=== PATIENT | female | born 1955 | race Hispanic/Latino ===

== ENCOUNTER 2017-03-22 19:38 | Emergency (ER) | payer OTHER ==
[~2017-03-22] VITALS: Ht 144.8 cm; Wt 68.2 kg
[~2017-03-22 19:38] MED LIST: ALEN70TA2 PO; ANAS1TAB7 PO; ATOR20TA PO; CITA20TA11 PO; HYDR12.5 PO; TERB250T4 PO; VITD PO; ZOLP10TA5 PO; calcium PO
[2017-03-22 19:42] VITALS: BP 152/90; PULSE 60; RESP 16; O2SAT 99
[2017-03-22 20:10] LABS: BASOPHILS % (AUTO) 0.1 % (0-3); EOSINOPHILS % (AUTO) 3.6 % (0-5); Mean Corpuscular Hemoglobin 27.2 pg (27.0-35.0); Mean Corpuscular Volume 82.4 fL (81-100); NEUTROPHILS % (AUTO) 54.4 % (40-74); Platelet Count 303 bil/L (150-400)
[2017-03-22 20:20] VITALS: BP 140/55; PULSE 59; RESP 16; O2SAT 98
--- NOTE | 2017-03-22 20:21 | DRSVH ---
PROCEDURE: X-RAY CHEST ONE VIEW, PORTABLE ([id number]) INDICATIONS: CHEST PAIN TECHNIQUE: One view of the chest was acquired. COMPARISON: None. FINDINGS: Surgical changes and devices: Surgical clips noted in the upper abdomen, in the right breast and the right axilla. Lungs and pleura: No pleural effusions or pneumothorax. Lungs are clear. Mediastinum: Mediastinal contours appear normal. Heart size is normal. Bones and chest wall: No suspicious bony lesions. Overlying soft tissues appear unremarkable. IMPRESSION: No acute cardiopulmonary disease process. Dictated by: Nguyen Ross MD, PhD on 03/22/2017 at 20:18 Approved by: Nguyen Ross MD, PhD on 03/22/2017 at 20:20
--- NOTE | 2017-03-22 20:27 | ED.REPORT ---
HPI-General Illness Date of Service Mar 22, 2017 ED Provider: Jaswinder Fritz Patient is a 61 year old female with a hx of HTN, hyperlipidemia, and breast cancer who presents to the ED after being referred by urgent care complaining of midline chest pressure onset this morning. Her pressure did not radiate and was a 4/10 at its worst. She is currently chest pain free and her symptoms gradually improved throughout the day. Her symptoms improved with walking about and inspiration. Her EKG and labs at were negative but they told her to come to the ED for further evaluation. Associated symptoms include L hand numbness ( onset this morning while working, resolved) and nausea, mild SOB, and mild neck pain onset a few hours ago - these have all resolved. She denies headache, fever , chills, lightheadedness, or any other symptoms. She has no known family hx of cardiac disease. Nursing Notes Stated Complaint: PRESSURE ON CHEST Chief Complaint: Chest Pain Nursing Notes Reviewed: Yes Allergies: Coded Allergies: Contrast Media (Verified Allergy, Severe, SOB, 04/01/13) iodamide (Verified Allergy, Severe, SOB, 04/01/13) Scheduled ([calcium]) 1,000 MG PO DAILY ([vitd3]) 1,000 MG PO DAILY Alendronate Sodium (Fosamax) 70 Mg Tablet 70 MG PO QW Anastrozole (Anastrozole) 1 Mg Tablet 1 MG PO DAILY Atorvastatin (Lipitor) 20 Mg Tablet 20 MG PO DAILY Citalopram (Citalopram) 20 Mg Tablet 20 MG PO DAILY Hydrochlorothiazide (Hydrochlorothiazide) 12.5 Mg Capsule 25 MG PO DAILY Terbinafine (Lamisil) 250 Mg Tablet 250 MG PO DAILY Scheduled PRN Zolpidem (Zolpidem) 10 Mg Tablet 10 MG PO HS PRN PRN For Insomnia General Time Seen by MD: 20:26 Chief Complaint Other (Chest pressure ) Hx Obtained From: Patient, Other family... (Grandson) Arrived By: Walk-in Sudden in Onset?: Yes Onset Occurred: 9 - 12 hours ago (This morning ) Location: : Chest Quality: Pressure Radiation: : Does not radiate Severity: Current: No pain currently Severity: Maximum: Pain level 4 out of 10 Associated with: Reports: Numb extremities Pertinent Negative: Exacerbated by nothing Similar Sx Previous: No Past Medical History Past Medical History GERD Breast cancer Borderline diabetic Reports: Hyperlipidemia, Hypertension Reports: Depression Past Surgical History Esophagus surg Breast bx nephrectomy KEZIA Reports: (x3) Smoking History Never Smoker Social History Other Social History: Good social support, Local resident Ambulatory Status Independent Review of Systems Full Review of Systems Constitutional: Denies: Chills, Fever Respiratory: Reports: Shortness of breath Cardiovascular: Reports: Chest pain GI: Reports: Nausea Musculoskeletal: Reports: Neck pain Neurologic: Reports: Numbness, Denies: Headache, Lightheaded Complete sys rev & neg: except as marked. Physical Exam Nursing note and vitals reviewed. Constitutional: Well-developed, well-nourished. Not diaphoretic. Head: Normocephalic and atraumatic. Mouth/Throat: Oropharynx is clear and moist. No oropharyngeal exudate. Eyes: EOM are normal. Pupils are equal, round, and reactive to light. Neck: Supple, no tracheal deviation. Cardiovascular: Normal rate, regular rhythm. Equal and intact distal pulses throughout. Pulmonary/Chest: Effort normal and breath sounds normal. No respiratory distress. Abdominal: Soft. No distension. There is no tenderness, rebound, or guarding. Musculoskeletal: Range of motion grossly intact, moving all extremities. No edema or tenderness appreciated. Neurological: AOx3. Grossly nonfocal exam. Strength and sensation intact and equal to bilateral upper and lower extremities. Skin: Warm and dry, no rashes or pallor appreciated. Psychiatric: Appropriate mood and affect. Behavior appears normal. Vital Signs Vital Signs Date Time Temp Pulse Resp B/P Pulse Ox O2 Delivery O2 Flow Rate FiO2 03/22/17 22:38 61 16 134/63 98 Room Air 03/22/17 22:26 61 16 134/63 98 Room Air 03/22/17 20:20 59 16 140/55 98 Room Air 03/22/17 19:42 36.6 60 16 152/90 99 Room Air Interpretation & Diagnostics Lab Results Interpretation Result Diagram: 03/22/17200503/22/172005 Test 03/22/17 20:06 03/22/17 21:22 White Blood Count 7.5th/mm3 (3.8-10.1) Red Blood Count 4.71mil/mm3 (3.90-5.20) Hemoglobin 12.8g/dL (12.0-15.6) Hematocrit 38.8% (35.0-46.0) Mean Corpuscular Volume 82.4fL (81-100) Mean Corpuscular Hemoglobin 27.2pg (27.0-35.0) Mean Corpuscular Hemoglobin Concent 33.0% (32.0-37.0) Red Cell Distribution Width 12.6% (12.3-15.4) Platelet Count 303bil/L (150-400) Neutrophils (%) (Auto) 54.4% (40-74) Lymphocytes (%) (Auto) 34.8% (14-46) Monocytes (%) (Auto) 7.0% (4-12) Eosinophils (%) (Auto) 3.6% (0-5) Basophils (%) (Auto) 0.1% (0-3) Sodium Level 136mEq/L (134-144) Potassium Level 3.7mEq/L (3.5-5.2) Chloride Level 97mEq/L (97-108) Carbon Dioxide Level 24mmol/L (18-29) Blood Urea Nitrogen 13mg/dL (8-27) Creatinine 0.74mg/dL (0.57-1.00) Estimat Glomerular Filtration Rate 114mL/min (>59) Glucose Level 114mg/dL (60-99) Calcium Level 9.2mg/dL (8.5-10.1) Magnesium Level 2.2mg/dL (1.6-2.6) Total Bilirubin 0.4mg/dL (0.0-1.2) Aspartate Amino Transf (AST/SGOT) 16U/L (0-50) Alanine Aminotransferase (ALT/SGPT) 15U/L (0-32) Alkaline Phosphatase 48U/L (25-165) Troponin T < 0.010ug/L (0.0-0.011) Total Protein 7.5g/dL (6.4-8.4) Albumin 4.3g/dL (3.4-5.0) Hold [place] Top Tube Received (Received) Hold Urine Received (Received) ECG Interpretation ECG Interpretation: Sinus rate 59 no ischemia Time: 19:55 Interpreted by: ED physician X-Ray Chest Interpretation Chest Xray Interpretation: IMPRESSION: No acute cardiopulmonary disease process. Dictated by: Nguyen Ross MD, PhD on 03/22/2017 at 20:18 Approved by: Nguyen Ross MD, PhD on 03/22/2017 at 20:20 View: Portable, 1 view Re-Eval/Medical Decision Med Decision/Clinical Course In summary, 61F who presents to the ED for evaluation of nonexertional, nonradiating midsternal chest pain earlier today, since resolved. Differential includes ACS, PE, PTX, aortic dissection, myocarditis/pericarditis, abdominal etiology such as cholecystitis, MSK pain. Troponin negative here, symptoms resolved. HEART score of 3. EKG demonstrates sinus rhythm with no ischemic changes. No pleuritic symptoms, recent history of extended travel/immobilization , exogenous estrogen use - lowest risk by [place]. No evidence of pneumothorax on chest x-ray or exam. Rest of labs unremarkable. Neither clinical presentation, exam, or EKG seem c/w pericarditis or myocarditis. Patient would likely benefit from a stress test for risk stratification - discussed doing this here or as an outpatient and decided to discharge home w/ close return precautions, PCP followup tomorrow. Patient agreeable to plan, no further questions. Time of Eval: 22:15 Re-Evaluation/Progress Note: Discussed plan for discharge. Patient understands and agrees with plan. All questions addressed at this time. Counseled Regarding: Diagnosis, Lab results, Need for follow-up, When/why to return to ED Discharge & Departure Primary Impression: Chest pain Chest pain type: unspecified Qualified Code: R07.9 - Chest pain, unspecified Disposition: Home Discharge Condition All VS Reviewed: Yes Condition: Improved Patient Instructions: Chest Pain (ED) Additional Instructions: Thank you for entrusting us with your care. Your exam, lab work, X-ray, and EKG are reassuring. We did not find a dangerous cause for your symptoms at this time. Call your primary doctor in the morning to schedule an appointment in the next few days. Talk to your doctor about referring you to a upholsterer outside and scheduling a stress test. Return to the emergency department if you experience shortness of breath, numbness, weakness, increasing chest pain, or any other new or worsening symptoms. Referrals: Miki Cortés MD (PCP) Scribe Attestation Portions of this note were transcribed by Bernie Espitia. I, Dr. Fritz personally performed the history, physical exam and medical decision-making; I reviewed and confirmed the accuracy of the information in the transcribed note. Signed by: Bernie Espitia 03/22/17, 2218 copies to: Miki Cortés MD, William B MD Mar 22, 2017 20:27 BERNIE ESPITIA Mar 22, 2017 22:03
[2017-03-22 20:41] LABS: TROPONIN T < 0.010 ug/L (0.0-0.011)
[2017-03-22 20:44] LABS: Magnesium 2.2 mg/dL (1.6-2.6)
[2017-03-22 22:26] VITALS: BP 134/63; PULSE 61; RESP 16; O2SAT 98
[2017-03-22 22:38] VITALS: BP 134/63; PULSE 61; RESP 16; O2SAT 98
== END 2017-03-22 22:39 | disposition home or self-care (01) ==
LOC: SED 19:38
DX: R07.9 Chest pain, unspecified (principal); R20.2 Paresthesia of skin; R11.0 Nausea; R06.02 Shortness of breath; M54.2 Cervicalgia; I10 Essential (primary) hypertension; E78.5 Hyperlipidemia, unspecified; F32.9 Major depressive disorder, single episode, unspecified; K21.9 Gastro-esophageal reflux disease without esophagitis; R73.03 Prediabetes; Z85.3 Personal history of malignant neoplasm of breast; Z91.041 Radiographic dye allergy status